=== PATIENT | male | born 1985 | race Caucasian/White ===

== ENCOUNTER 2019-08-13 22:45 | Emergency (ER) | payer MEDICAID ==
[~2019-08-13] VITALS: Ht 180.3 cm; Wt 59.5 kg
[2019-08-13 22:50] VITALS: Ht 180.3 cm; Wt 59.5 kg
[2019-08-13 23:46] VITALS: BP 116/76
== END 2019-08-13 23:47 | disposition home or self-care (01) ==
LOC: D.ER 22:45
DX: J11.1 Influenza due to unidentified influenza virus with other respiratory manifestations (principal); Z72.0 Tobacco use; R51 Headache

== ENCOUNTER 2019-08-15 14:10 | Emergency (ER) | payer MEDICAID ==
[~2019-08-15] VITALS: Ht 180.3 cm; Wt 60.5 kg
[~2019-08-15 14:10] MED LIST: ATARAX 25 MG TA25 MG PO; BUPRENORPHIN-N1 EACH SL; DURAFLU 325-201 EACH PO; KLONOPIN1 MG PO
[2019-08-15 14:28] VITALS: BP 134/85; Ht 180.3 cm; Wt 60.5 kg
--- NOTE | 2019-08-15 15:34 | NUR ---
PT ADMITS TO HAVING A SUICIDE ATTEMPT AROUND YEAR 1999. PT DID NOT RECIEVE TREATMENT. PT ADMITS TO SOME DRUG USE AND THAT HE IS HOMELESS. PT HAS HAD SUICIDAL THOUGHTS IN THE PAST BUT NO PLAN. ASSESSMENT SHOWS THAT HE IS A MODERATE RISK. INFORMED ATTENDING AND NURSE. RESOURCES GIVEN AND PT VERBALIZED UNDERSTANDING.
[2019-08-15] MEDS ORDERED: TAMIFLU75 MG PO (15:56)
[2019-08-15] MEDS ORDERED: BUPRENORPHIN-N1 EACH SL (19:34)
[2019-08-15] MEDS ORDERED: KLONOPIN1 MG PO (19:34)
== END 2019-08-15 16:14 | disposition home or self-care (01) ==
LOC: D.ER 14:10
DX: J02.9 Acute pharyngitis, unspecified (principal); Z72.0 Tobacco use

== ENCOUNTER 2019-08-15 19:14 | Emergency (ER) | payer MEDICAID ==
[~2019-08-15] VITALS: Ht 180.3 cm; Wt 68.2 kg
[~2019-08-15 19:14] MED LIST changes: +TAMIFLU75 MG PO
[2019-08-15 19:30] VITALS: Ht 180.3 cm; Wt 68.2 kg
[2019-08-15] MEDS ORDERED: KLONOPIN1 MG PO (19:34)
[2019-08-15] MEDS ORDERED: BUPRENORPHIN-N1 EACH SL (19:34)
[2019-08-15 19:59] LABS: BASOPHILS 0.2 % (0-2); EOSINOPHILS 1.8 % (0-7); HEMATOCRIT 42.3 % (42.0-54.0); HEMOGLOBIN 14.1 g/dL (13.5-17.5); IMMATURE GRANULOCYTES 0.2 % (0-5); LYMPHOCYTES 32.6 % (15-50); MCHC 33.3 g/dL (31.0-37.0); MEAN PLATELET VOLUME 9.3 fL (7.4-10.4); MONOCYTES 11.2 % (2-11); PLATELET COUNT 338 10x3/uL (130-400); RDW 13.8 % (11.5-14.5); WBC 8.3 10x3/uL (4.8-10.8)
[2019-08-15 20:11] LABS: CALC OSMOLALITY 273 mosm/kg (275-300); CALCIUM 9.2 mg/dL (8.5-10.1); CARBON DIOXIDE 30.9 mmol/L (21.0-32.0); CHLORIDE - SERUM 103 mmol/L (98-107); CREATININE - SERUM 0.9 mg/dL (0.6-1.3); SODIUM 140 mmol/L (136-145); UREA NITROGEN 5 mg/dL (7-18); eGFR NON AFRICAN AMERICAN > 90 mL/min (90-120)
[2019-08-15 20:12] LABS: GLUCOSE 68 mg/dL (74-106)
[2019-08-15 20:18] LABS: ALBUMIN 4.1 g/dL (3.4-5.0); ALKALINE PHOSPHATASE 98 U/L (30-120); ALT (SGPT) 23 U/L (10-68); BILIRUBIN - TOTAL 0.26 mg/dL (0.2-1.3); MAGNESIUM - SERUM 1.9 mg/dL (1.8-2.4); PROTEIN - SERUM 8.2 g/dL (6.4-8.2)
[2019-08-15 20:30] LABS: BILIRUBIN NEGATIVE (NEGATIVE); GLUCOSE NEGATIVE (NEGATIVE); KETONE NEGATIVE (NEGATIVE); NITRITE NEGATIVE (NEGATIVE); SPECIFIC GRAVITY 1.015 (1.005-1.020); UROBILINOGEN NORMAL (NORMAL)
[2019-08-15 20:32] LABS: UDS - AMPHET POSITIVE QUAL (NEGATIVE); UDS - BARB NEGATIVE QUAL (NEGATIVE); UDS - BENZO NEGATIVE QUAL (NEGATIVE); UDS - COCAINE NEGATIVE QUAL (NEGATIVE); UDS - OPIATE NEGATIVE QUAL (NEGATIVE); UDS - PCP NEGATIVE QUAL (NEGATIVE); UDS - THC NEGATIVE QUAL (NEGATIVE)
--- NOTE | 2019-08-15 21:18 | NUR ---
PATIENT ADMITS TO BE SUICIDIAL AND HOMELESS, HE SAYS THAT HE IS NOT HAPPY AND DOES NOT WANT TO FREEZE TO OUTSIDE. SAFETY PLAN DISCUSSED WITH PATIENT, NUMBER GIVEN TO PATIENT TO CALL FOR THE FUTURE, PATIENT IS IN PAPER SCRUBS AND IS PLACED ON 1 TO 1
[2019-08-15 22:34] VITALS: BP 126/78
== END 2019-08-16 02:05 ==
LOC: D.ER 19:14
PROVIDERS: Family Medicine
DX: R45.851 Suicidal ideations (principal); F41.8 Other specified anxiety disorders

== ENCOUNTER 2019-08-20 14:23 | Emergency (ER) | payer MEDICAID ==
[~2019-08-20] VITALS: Ht 180.3 cm; Wt 62.5 kg
[2019-08-20 14:37] VITALS: Ht 180.3 cm; Wt 62.5 kg
[2019-08-20 15:06] LABS: UDS - AMPHET NEGATIVE QUAL (NEGATIVE); UDS - BARB NEGATIVE QUAL (NEGATIVE); UDS - BENZO NEGATIVE QUAL (NEGATIVE); UDS - COCAINE NEGATIVE QUAL (NEGATIVE); UDS - OPIATE NEGATIVE QUAL (NEGATIVE); UDS - PCP NEGATIVE QUAL (NEGATIVE); UDS - THC NEGATIVE QUAL (NEGATIVE)
[2019-08-20] MEDS ORDERED: KLONOPIN1 MG PO (16:10)
[2019-08-20 16:25] VITALS: BP 115/66
== END 2019-08-20 16:26 | disposition home or self-care (01) ==
LOC: D.ER 14:23
PROVIDERS: Family Medicine
DX: F41.9 Anxiety disorder, unspecified (principal); Z76.0 Encounter for issue of repeat prescription

== ENCOUNTER 2019-08-25 19:21 | Emergency (ER) | payer MEDICAID ==
[~2019-08-25] VITALS: Ht 180.3 cm; Wt 63.2 kg
[2019-08-25 19:30] VITALS: Ht 180.3 cm; Wt 63.2 kg
[2019-08-25 19:56] LABS: BASOPHILS 0.5 % (0-2); EOSINOPHILS 1.4 % (0-7); HEMATOCRIT 39.8 % (42.0-54.0); HEMOGLOBIN 13.3 g/dL (13.5-17.5); IMMATURE GRANULOCYTES 0.1 % (0-5); LYMPHOCYTES 41.1 % (15-50); MCHC 33.4 g/dL (31.0-37.0); MCV 89.8 fL (80.0-100.0); MEAN PLATELET VOLUME 9.3 fL (7.4-10.4); MONOCYTES 10.3 % (2-11); NEUTROPHILS 46.6 % (40-80); PLATELET COUNT 384 10x3/uL (130-400); RBC 4.43 10x6/uL (4.20-6.10); RDW 13.5 % (11.5-14.5); WBC 8.4 10x3/uL (4.8-10.8)
[2019-08-25 20:07] LABS: CALC OSMOLALITY 287 mosm/kg (275-300); CALCIUM 8.9 mg/dL (8.5-10.1); CARBON DIOXIDE 30.5 mmol/L (21.0-32.0); CHLORIDE - SERUM 105 mmol/L (98-107); CREATININE - SERUM 0.7 mg/dL (0.6-1.3); GLUCOSE 93 mg/dL (74-106); POTASSIUM - SERUM 3.6 mmol/L (3.5-5.1); SODIUM 143 mmol/L (136-145); UREA NITROGEN 21 mg/dL (7-18); eGFR NON AFRICAN AMERICAN > 90 mL/min (90-120)
[2019-08-25 20:24] LABS: ALBUMIN 4.1 g/dL (3.4-5.0); ALKALINE PHOSPHATASE 107 U/L (30-120); ALT (SGPT) 38 U/L (10-68); BILIRUBIN - TOTAL 0.54 mg/dL (0.2-1.3); CREATINE KINASE 111 UL (21-232); PROTEIN - SERUM 7.6 g/dL (6.4-8.2)
[2019-08-25 20:30] LABS: TROPONIN-I < 0.017 ng/mL (0.000-0.060)
--- NOTE | 2019-08-25 21:09 | NUR ---
DR MEHTA NOTIFIED AND SITTER ORDERED. SITTER AT BEDSIDE. NOTIFIED CHARGE NURSE AND ATTENDING IN REGARDS TO ASSESSMENT FINDINGS. RESOURCES GIVEN TO PT AND SAFETY PLAN INITIATED.
[2019-08-25 21:28] LABS: BILIRUBIN NEGATIVE (NEGATIVE); GLUCOSE NEGATIVE (NEGATIVE); KETONE NEGATIVE (NEGATIVE); NITRITE NEGATIVE (NEGATIVE); SPECIFIC GRAVITY 1.025 (1.005-1.020); UROBILINOGEN NORMAL (NORMAL)
[2019-08-25 21:39] LABS: UDS - AMPHET POSITIVE QUAL (NEGATIVE); UDS - BARB NEGATIVE QUAL (NEGATIVE); UDS - BENZO NEGATIVE QUAL (NEGATIVE); UDS - COCAINE NEGATIVE QUAL (NEGATIVE); UDS - OPIATE NEGATIVE QUAL (NEGATIVE); UDS - PCP NEGATIVE QUAL (NEGATIVE); UDS - THC POSITIVE QUAL (NEGATIVE)
[2019-08-26 15:26] VITALS: BP 126/743
== END 2019-08-26 15:27 ==
LOC: D.ER 19:21
PROVIDERS: Emergency Medicine
DX: J11.1 Influenza due to unidentified influenza virus with other respiratory manifestations (principal); E86.0 Dehydration; R45.851 Suicidal ideations; F41.9 Anxiety disorder, unspecified

== ENCOUNTER 2019-09-10 23:36 | Emergency (ER) | payer MEDICAID ==
[~2019-09-10] VITALS: Ht 180.3 cm; Wt 68.2 kg
[2019-09-10 23:53] VITALS: Ht 180.3 cm; Wt 68.2 kg
[2019-09-10] MEDS ORDERED: KLONOPIN1 MG PO (23:55)
[2019-09-11 00:30] VITALS: BP 132/89
== END 2019-09-11 00:31 | disposition home or self-care (01) ==
LOC: D.ER 23:36
DX: Z76.0 Encounter for issue of repeat prescription (principal); Z59.0 Homelessness; F41.9 Anxiety disorder, unspecified

== ENCOUNTER 2019-09-15 17:15 | Emergency (ER) | payer MEDICAID ==
[~2019-09-15] VITALS: Ht 180.3 cm; Wt 68.2 kg
[2019-09-15 17:18] VITALS: BP 113/64; Ht 180.3 cm; Wt 68.2 kg
[2019-09-15] MEDS ORDERED: IBUPROFEN800 MG PO (17:56)
== END 2019-09-15 18:10 | disposition home or self-care (01) ==
LOC: D.ER 17:15
DX: M79.605 Pain in left leg (principal); M79.604 Pain in right leg; G89.29 Other chronic pain

== ENCOUNTER 2019-09-16 11:45 | Emergency (ER) | payer MEDICAID ==
[~2019-09-16 11:45] MED LIST changes: +IBUPROFEN800 MG PO
[2019-09-16 12:01] VITALS: Ht 180.3 cm
[2019-09-16 12:12] LABS: BILIRUBIN NEGATIVE (NEGATIVE); GLUCOSE NEGATIVE (NEGATIVE); KETONE NEGATIVE (NEGATIVE); NITRITE NEGATIVE (NEGATIVE); SPECIFIC GRAVITY 1.005 (1.005-1.020); UROBILINOGEN NORMAL (NORMAL)
[2019-09-16 12:13] LABS: UDS - AMPHET POSITIVE QUAL (NEGATIVE); UDS - BARB NEGATIVE QUAL (NEGATIVE); UDS - BENZO POSITIVE QUAL (NEGATIVE); UDS - COCAINE NEGATIVE QUAL (NEGATIVE); UDS - OPIATE NEGATIVE QUAL (NEGATIVE); UDS - PCP NEGATIVE QUAL (NEGATIVE); UDS - THC NEGATIVE QUAL (NEGATIVE)
[2019-09-16 12:33] LABS: BASOPHILS 0 % (0-2); EOSINOPHILS 1.3 % (0-7); HEMATOCRIT 41.4 % (42.0-54.0); HEMOGLOBIN 13.7 g/dL (13.5-17.5); LYMPHOCYTES 34.1 % (15-50); MCHC 33.1 g/dL (31.0-37.0); MCV 90.6 fL (80.0-100.0); MEAN PLATELET VOLUME 8.9 fL (7.4-10.4); MONOCYTES 7.2 % (2-11); NEUTROPHILS 57.4 % (40-80); PLATELET COUNT 356 10x3/uL (130-400); RBC 4.57 10x6/uL (4.20-6.10); RDW 13.2 % (11.5-14.5); WBC 3.9 10x3/uL (4.8-10.8)
[2019-09-16 12:40] LABS: CALC OSMOLALITY 277 mosm/kg (275-300); CALCIUM 9.1 mg/dL (8.5-10.1); CARBON DIOXIDE 30.3 mmol/L (21.0-32.0); CHLORIDE - SERUM 103 mmol/L (98-107); GLUCOSE 93 mg/dL (74-106); POTASSIUM - SERUM 3.5 mmol/L (3.5-5.1); SODIUM 141 mmol/L (136-145); UREA NITROGEN 5 mg/dL (7-18); eGFR NON AFRICAN AMERICAN > 90 mL/min (90-120)
[2019-09-16 12:47] LABS: ALBUMIN 4.1 g/dL (3.4-5.0); ALKALINE PHOSPHATASE 68 U/L (30-120); ALT (SGPT) 36 U/L (10-68); BILIRUBIN - TOTAL 0.55 mg/dL (0.2-1.3); MAGNESIUM - SERUM 2.2 mg/dL (1.8-2.4); PROTEIN - SERUM 7.6 g/dL (6.4-8.2)
--- NOTE | 2019-09-16 14:24 | NUR ---
DR. MEHTA NOTIFIED AND SITTER ORDERED. SITTER AT BEDSIDE. NOTIFIED CHARGE NURSE AND ATTENDING IN REGARDS TO ASSESSMENT FINDINGS. RESOURCES GIVEN TO PT AND SAFETY PLAN INITIATED.
[2019-09-16 16:25] VITALS: BP 114/72
== END 2019-09-16 16:26 ==
LOC: D.ER 11:45
PROVIDERS: Family Medicine
DX: R45.851 Suicidal ideations (principal); F41.9 Anxiety disorder, unspecified

== ENCOUNTER 2019-09-25 09:23 | Emergency (ER) | payer OTHER ==
[~2019-09-25] VITALS: Ht 180.3 cm; Wt 68.2 kg
[2019-09-25 09:30] VITALS: BP 133/82; Ht 180.3 cm; Wt 68.2 kg
[2019-09-25] MEDS ORDERED: VISTARIL25 MG PO (10:10)
== END 2019-09-25 10:33 | disposition home or self-care (01) ==
LOC: D.ER 09:23
DX: Z76.0 Encounter for issue of repeat prescription (principal); F41.9 Anxiety disorder, unspecified

== ENCOUNTER 2019-10-16 21:26 | Emergency (ER) | payer OTHER ==
[~2019-10-16] VITALS: Ht 180.3 cm; Wt 79.5 kg
[~2019-10-16 21:26] MED LIST changes: +VISTARIL25 MG PO
[2019-10-16 21:30] VITALS: Ht 180.3 cm; Wt 79.5 kg
[2019-10-16 23:35] LABS: HEMATOCRIT 37.6 % (42.0-54.0); HEMOGLOBIN 12.6 g/dL (13.5-17.5); LYMPHOCYTES 41.4 % (15-50); MCH 29.6 pg (26.0-34.0); MCHC 33.5 g/dL (31.0-37.0); MCV 88.5 fL (80.0-100.0); MEAN PLATELET VOLUME 8.8 fL (7.4-10.4); NEUTROPHILS 50.7 % (40-80); RBC 4.25 10x6/uL (4.20-6.10); RDW 13.4 % (11.5-14.5); WBC 6.7 10x3/uL (4.8-10.8)
[2019-10-16 23:37] LABS: PLATELET COUNT 489 10x3/uL (130-400)
[2019-10-16 23:42] LABS: BILIRUBIN NEGATIVE (NEGATIVE); GLUCOSE NEGATIVE (NEGATIVE); KETONE NEGATIVE (NEGATIVE); NITRITE NEGATIVE (NEGATIVE); UROBILINOGEN NORMAL (NORMAL)
[2019-10-16 23:50] LABS: CALC OSMOLALITY 280 mosm/kg (275-300); CALCIUM 8.4 mg/dL (8.5-10.1); CARBON DIOXIDE 25.6 mmol/L (21.0-32.0); CHLORIDE - SERUM 103 mmol/L (98-107); CREATININE - SERUM 0.8 mg/dL (0.6-1.3); GLUCOSE 116 mg/dL (74-106); POTASSIUM - SERUM 3.7 mmol/L (3.5-5.1); SODIUM 141 mmol/L (136-145); UREA NITROGEN 10 mg/dL (7-18); eGFR NON AFRICAN AMERICAN > 90 mL/min (90-120)
[2019-10-16 23:56] LABS: ALBUMIN 3.7 g/dL (3.4-5.0); ALKALINE PHOSPHATASE 76 U/L (30-120); ALT (SGPT) 29 U/L (10-68); MAGNESIUM - SERUM 1.9 mg/dL (1.8-2.4); PROTEIN - SERUM 6.9 g/dL (6.4-8.2)
[2019-10-17 00:05] LABS: UDS - AMPHET NEGATIVE QUAL (NEGATIVE); UDS - BARB NEGATIVE QUAL (NEGATIVE); UDS - BENZO NEGATIVE QUAL (NEGATIVE); UDS - COCAINE NEGATIVE QUAL (NEGATIVE); UDS - OPIATE NEGATIVE QUAL (NEGATIVE); UDS - PCP NEGATIVE QUAL (NEGATIVE); UDS - THC POSITIVE QUAL (NEGATIVE)
--- NOTE | 2019-10-17 01:18 | NUR ---
DR MEHTA NOTIFIED OF PT's BEHAVIOR AND ASSESSMENT RESULTS. PT IS A LOW RISK PER DR MEHTA. DR MEHTA STATED TO GIVE RESOURCES TO PT AT TIME OF DISCHARGE. NO FURTHER ORDERS AT THIS TIME. RESOURCES REVIEWED WITH PT AND HE VERBALIZED UNDERSTANDING.
[2019-10-17 02:34] VITALS: BP 128/89
== END 2019-10-17 02:38 ==
LOC: D.ER 21:26
PROVIDERS: Family Medicine
DX: R45.851 Suicidal ideations (principal); F32.9 Major depressive disorder, single episode, unspecified

== ENCOUNTER 2020-04-04 11:24 | Emergency (ER) | payer OTHER ==
[~2020-04-04] VITALS: Ht 180.3 cm; Wt 80.9 kg
[2020-04-04 11:26] VITALS: BP 105/56; Ht 180.3 cm; Wt 80.9 kg
[2020-04-04] MEDS ORDERED: VISTARIL25 MG PO (12:13)
[2020-04-04] MEDS ORDERED: ATARAX 25 MG TA25 MG PO (12:25)
== END 2020-04-04 12:31 | disposition home or self-care (01) ==
LOC: D.ER 11:24
DX: R53.83 Other fatigue (principal); F41.9 Anxiety disorder, unspecified; R41.82 Altered mental status, unspecified